=== PATIENT | male | born 1995 | race Caucasian/White ===

== ENCOUNTER 2021-05-04 11:26 | Emergency (ER) | payer SELFPAY ==
[2021-05-04] MEDS ORDERED: CYCLOBENZAPRINE 10 MG TAB ONE (12:34)
[2021-05-04] MEDS ORDERED: IBUPROFEN 400 MG TAB ONE (12:34)
[2021-05-04] MEDS ORDERED: LIDOCAINE 4% PATCH ONE (12:35)
--- NOTE | 2021-05-04 12:44 | EDPHYS ---
Physician Documentation [facility] Name: Harpreet Chua Age: 26 yrs Sex: Male : 1995 Arrival Date: 05/04/2021 Time: 11:40 Bed Treatment Private MD: ED Physician Jonathan Antonio HPI: 05/04 12:36 This 26 yrs old Male presents to ER via Ambulatory with complaints of Back cp Pain. 12:36 The patient presents with pain that is acute. The symptoms are located in the low back. cp Onset: The symptoms/episode began/occurred 2 day(s) ago. The pain does not radiate. Associated signs and symptoms: Pertinent negatives: abdominal pain, constipation, dysuria, incontinence, numbness, urinary retention, weakness. The problem was sustained Pain started after standing up from bending over. Modifying factors: the patient symptoms are aggravated by bending. Severity of symptoms: in the emergency department the symptoms are unchanged, despite home interventions. Historical: - Allergies: 11:49 No Known Allergies; aa5 - PMHx: 11:49 None; aa5 - PSHx: 11:49 foot; hernia; aa5 - Immunization history:: Client reports receiving the 2nd dose of the Covid vaccine. - Social history:: Smoking status: Patient denies any tobacco usage or history of. ROS: 12:38 Constitutional: Negative for body aches, chills, fever, poor PO intake. cp 12:38 Cardiovascular: Negative for chest pain, edema, palpitations. 12:38 Respiratory: Negative for cough, shortness of breath, wheezing. 12:38 Abdomen/GI: Negative for abdominal pain, nausea, vomiting, and diarrhea, constipation, bowel incontinence. 12:38 Back: Positive for pain at rest, pain with movement, of the low back area, Negative for radiated pain. 12:38 : Negative for urinary symptoms, difficulty urinating, bladder incontinence, testicular pain 12:38 Skin: Negative for rash. 12:38 Neuro: Negative for altered mental status, headache, syncope, weakness. 12:38 All other systems are negative. Exam: 12:40 Head/Face: Normocephalic, atraumatic. cp 12:40 Constitutional: The patient appears in no acute distress, alert, awake, comfortable, non-toxic, well developed, well nourished, obese. 12:40 Chest/axilla: Inspection: normal. 12:40 Cardiovascular: Rate: normal, Rhythm: regular. 12:40 Respiratory: the patient does not display signs of respiratory distress, Respirations: normal, no use of accessory muscles, no retractions, labored breathing, is not present. 12:40 Abdomen/GI: Inspection: abdomen appears normal, Palpation: abdomen is soft and non-tender, in all quadrants. 12:40 Back: pain, that is moderate, of the low back area, ROM is painful, with flexion. 12:40 Neuro: Orientation: to person, place \T\ time. Mentation: is normal, Motor: moves all fours, strength is normal, Sensation: is normal, Gait: is steady, at a normal pace, without difficulty. Vital Signs: 11:47 BP 160 / 98; Pulse 100; Resp 18 S; Temp 97.3(TE); Pulse Ox 100% on R/A; Weight 145.15 aa5 kg (R); Height 5 ft. 10 in. (177.80 cm) (R); 12:27 BP 155 / 90; Pulse 92; Resp 18; Pulse Ox 100% on R/A; ld1 11:47 Body Mass Index 45.91 (145.15 kg, 177.80 cm) aa5 MDM: 12:31 Patient medically screened. cp 12:40 Differential diagnosis: Cholelithiasis Fracture Obesity Pyelonephritis sprain, cp Ureterolithiasis vertebral fracture, spinal stenosis, cauda equina, bulging disc. 12:43 Data reviewed: vital signs, nurses notes. cp 12:43 Counseling: I had a detailed discussion with the patient and/or guardian regarding: the cp historical points, exam findings, and any diagnostic results supporting the discharge/admit diagnosis, the need for outpatient follow up, a family practitioner, to return to the emergency department if symptoms worsen or persist or if there are any questions or concerns that arise at home. Response to treatment: the patient's symptoms have mildly improved after treatment, and as a result, I will discharge patient. Administered Medications: 12:43 Drug: Lidoderm Patch 5 % (700 mg/patch) 1 patches Route: Topical; Site: affected area; ld1 12:43 Follow up: Response: No adverse reaction ld1 12:43 Drug: Flexeril (cyclobenzaprine) 10 mg Route: PO; ld1 12:43 Follow up: Response: No adverse reaction ld1 12:43 Drug: Ibuprofen 800 mg Route: PO; ld1 12:43 Follow up: Response: No adverse reaction ld1 Disposition: 12:50 Chart complete. cp 16:18 Co-signature as Attending Physician, Jonathan Antonio MD. pkl Disposition Summary: 05/04/21 12:43 Discharge Ordered Location: Home cp Problem: new cp Symptoms: have improved cp Condition: Stable cp Diagnosis - Low back pain cp Followup: cp - With: Private Physician - When: 1 week - Reason: pain continues Discharge Instructions: - Discharge Summary Sheet cp - Acute Back Pain, Adult cp - Heat Therapy cp - Back Exercises cp Forms: - Medication Reconciliation Form cp - Thank You Letter cp - Antibiotic Education cp - Prescription Opioid Use cp - Work release form ld1 Prescriptions: - Lidoderm 5 % Topical adhesive patch,medicated - apply 1 patch by TOPICAL route once daily; 1 box; Refills: 0, Product Selection cp Permitted - Cyclobenzaprine 10 mg Oral Tablet - take 1 tablet by ORAL route every 8 hours As needed; 30 tablet; Refills: 0, cp Product Selection Permitted - Diclofenac Sodium 75 mg Oral tablet,delayed release (DR/EC) - take 1 tablet by ORAL route 2 times per day; 20 tablet; Refills: 0, Product cp Selection Permitted Signatures: Jonathan Antonio MD MD pkAnn Nance RN RN aa5 Augustine Mosley PA PA cp Clarita Hussein RN RN ld1 Corrections: (The following items were deleted from the chart) 11:49 11:49 PSHx: None; callie ledesma
--- NOTE | 2021-05-04 12:44 | ER ---
Nurse's Notes [facility] Name: Harpreet Chua Age: 26 yrs Sex: Male : 1995 Arrival Date: 05/04/2021 Time: 11:40 Bed Treatment Private MD: Diagnosis: Low back pain Presentation: 05/04 11:47 Chief complaint: Patient states: low back pain since Monday. Pt states "I was bending aa5 over and I went to stand up straight and felt like I twitched my back". Coronavirus screen: At this time, the client does not indicate any symptoms associated with coronavirus-19. Ebola Screen: No symptoms or risks identified at this time. Initial Sepsis Screen: Does the patient meet any 2 criteria? HR > 90 bpm. Does the patient have a suspected source of infection? No. Patient's initial sepsis screen is negative. Risk Assessment: Do you want to hurt yourself or someone else? Patient reports no desire to harm self or others. Onset of symptoms was May 02, 2021. 11:47 Method Of Arrival: Ambulatory aa5 11:47 Acuity: HILARIO 4 aa5 Historical: - Allergies: 11:49 No Known Allergies; aa5 - PMHx: 11:49 None; aa5 - PSHx: 11:49 foot; hernia; aa5 - Immunization history:: Client reports receiving the 2nd dose of the Covid vaccine. - Social history:: Smoking status: Patient denies any tobacco usage or history of. Screenin:27 Abuse screen: Denies threats or abuse. Denies injuries from another. Nutritional ld1 screening: No deficits noted. Tuberculosis screening: No symptoms or risk factors identified. Fall Risk None identified. Assessment: 12:27 General: Appears in no apparent distress. uncomfortable, Behavior is calm, cooperative, ld1 appropriate for age. Pain: Complains of pain in back Pain does not radiate. Pain currently is 7 out of 10 on a pain scale. Quality of pain is described as shooting, throbbing, Pain began 1 day ago. Is continuous. Neuro: Level of Consciousness is awake, alert, obeys commands, Oriented to person, place, time, situation. Cardiovascular: Capillary refill < 3 seconds Patient's skin is warm and dry. Respiratory: Airway is patent Respiratory effort is even, unlabored, Respiratory pattern is regular, symmetrical. GI: Abdomen is round non-distended. : No signs and/or symptoms were reported regarding the genitourinary system. EENT: No signs and/or symptoms were reported regarding the EENT system. Derm: No signs and/or symptoms reported regarding the dermatologic system. Musculoskeletal: Reports pain in back. Vital Signs: 11:47 BP 160 / 98; Pulse 100; Resp 18 S; Temp 97.3(TE); Pulse Ox 100% on R/A; Weight 145.15 aa5 kg (R); Height 5 ft. 10 in. (177.80 cm) (R); 12:27 BP 155 / 90; Pulse 92; Resp 18; Pulse Ox 100% on R/A; ld1 11:47 Body Mass Index 45.91 (145.15 kg, 177.80 cm) aa5 ED Course: 11:40 Patient arrived in ED. aa5 11:47 Arm band placed on. aa5 11:49 Triage completed. aa5 12:21 Augustine Mosley PA is PHCP. cp 12:21 Jonathan Antonio MD is Attending Physician. cp 12:27 Clarita Hussein, ALLEGRA is Primary Nurse. ld1 12:27 Patient has correct armband on for positive identification. Bed in low position. Call ld1 light in reach. Side rails up X2. Pulse ox on. NIBP on. 12:27 No provider procedures requiring assistance completed. ld1 12:53 Patient did not have IV access during this emergency room visit. ld1 Administered Medications: 12:43 Drug: Lidoderm Patch 5 % (700 mg/patch) 1 patches Route: Topical; Site: affected area; ld1 12:43 Follow up: Response: No adverse reaction ld1 12:43 Drug: Flexeril (cyclobenzaprine) 10 mg Route: PO; ld1 12:43 Follow up: Response: No adverse reaction ld1 12:43 Drug: Ibuprofen 800 mg Route: PO; ld1 12:43 Follow up: Response: No adverse reaction ld1 Outcome: 12:43 Discharge ordered by . cp 12:53 Discharged to home ambulatory. ld1 12:53 Condition: stable 12:53 Discharge instructions given to patient, Instructed on discharge instructions, follow up and referral plans. medication usage, Demonstrated understanding of instructions, follow-up care, medications, Prescriptions given X 3. 12:54 Patient left the ED. ld1 Signatures: Ann Quesada RN RN aa5 Augustine Mosley PA PA cp Dibbern, Lauren RN RN ld1 Corrections: (The following items were deleted from the chart) 11:49 11:49 PSHx: None; aa5 aa5
[2021-05-04 13:01] VITALS: TEMP 97.3; O2SAT 100
[2021-05-04 13:02] VITALS: BP 155/90
--- OUTSIDE RECORDS SUMMARY | 2021-05-08 18:08 | XMS REPORT | Continuity of Care Document ---
:1995 Author Organization [facility] t Address [address] [place] [address] Care Team Providers Name Role Phone LLOYD Attending Clinician Unavailable Problems This patient has no known problems. Allergies, Adverse Reactions, Alerts Allergy Allergy Status Severity Reaction(s) Onset Inactive Treating Comm ents Source Name Type Date Date Clinician NO KNOWN Drug Active [facility] Medications This patient has no known medications. Procedures This patient has no known procedures. Encounters Start End Encounter Admission Attending Care Care Encounter Source Date/Time Date/Time Type Type Clinicians Facility Department ID 2020-06-17 2020-06-17 Outpatient R [facility] [id number] [facility] 10:40:00 10:40:00 [id number] [facility] 2020-06-17 2020-06-17 Outpatient R [facility] [id number] [facility] 10:40:00 10:40:00 [facility] 2020-01-23 2020-01-23 Outpatient R LLOYD [facility] [id number] [facility] 11:40:00 11:40:00 RAD[facility] Results This patient has no known results.
== END 2021-05-04 12:54 | disposition home or self-care (01) ==
LOC: ER 11:26
DX: M54.50 Low back pain, unspecified (principal)
CPT/HCPCS: 99283